=== PATIENT | female | born 1985 | race Caucasian/White ===

== ENCOUNTER → 2017-11-20 07:41 | Outpatient (CLI) | payer OTHER, SELFPAY | PROVIDERS: Family Provider Family Medicine; PCP Family Medicine; Visit Provider Obstetrics & Gynecology | DX: R76.0 Raised antibody titer (principal) | CPT/HCPCS: 36415 ==

== ENCOUNTER → 2017-12-22 08:23 | Outpatient (CLI) | payer OTHER, SELFPAY | PROVIDERS: Family Provider Family Medicine; PCP Family Medicine; Visit Provider Obstetrics & Gynecology | DX: R76.0 Raised antibody titer (principal) | CPT/HCPCS: 87070; 87077; 87106; 87205 ==

== ENCOUNTER → 2018-01-09 16:58 | Outpatient (CLI) | payer OTHER, SELFPAY ==
--- NOTE | 2018-01-09 17:03 | RAD_ITS ---
STUDY: X-RAY - RIGHT KNEE REASON FOR EXAM: Female, 32 years old. Pain TECHNIQUE: Three view(s) of the knee were obtained. COMPARISON: None. FINDINGS: The distal femur is unremarkable. The proximal tibia is unremarkable. Normal medial femorotibial compartment. Normal lateral femorotibial compartment. Normal patellofemoral articulation. There is minimal fullness above the patella. The soft tissue structures are unremarkable. RAD/Knee 3 Views IMPRESSION: There are no acute osseous abnormalities. There is a small joint effusion. Electronically Signed: Salina Sheth MD at 1:44 EDT Tel Direct: [phone], Service support ,
== END ==
PROVIDERS: Family Provider Family Medicine; PCP Family Medicine; Visit Provider Physician Assistant
DX: M25.561 Pain in right knee (principal)
CPT/HCPCS: 73562

== ENCOUNTER → 2018-01-17 22:14 | Outpatient (CLI) | payer OTHER, SELFPAY ==
[2018-01-18 00:23] LABS: Chlamydia Trachomatis by PCR Negative (Negative); Neisserai gonorrhoeae by PCR Negative (Negative); Probe Check PASS; Sample Adequacy Control PASS; Specimen Processing Control PASS
[2018-01-23 11:13] LABS: HPV APTIMA, High Risk Negative (Negative)
== END ==
PROVIDERS: Visit Provider Obstetrics & Gynecology
DX: Z34.90 Encounter for supervision of normal pregnancy, unspecified, unspecified trimester (principal); Z12.4 Encounter for screening for malignant neoplasm of cervix
CPT/HCPCS: 87086; 87491; 87591; 88175; G0145

== ENCOUNTER → 2018-02-04 08:53 | Outpatient (CLI) | payer OTHER, SELFPAY ==
[2018-02-04 10:05] LABS: Absolute Lymphocyte Count 1.54 X10^3/ul (0.83-4.51); Absolute Neutrophil Count 5.5 X10^3/uL (2.0-7.7); Basophil# 0.02 X10^3/uL; Basophil% 0.3 % (0-1); Eosinophil# 0.13 X10^3/uL; Eosinophils% 1.7 % (0-5); Hematocrit 43.5 % (37-47); Lymphocyte # 1.54 X10^3/ul (4.0); Lymphocyte % 20.1 % (19-41); Mean Corp Hgb Conc 34.5 g/gl (32-36); Mean Corpuscular Hgb 30.1 pg (27.0-32.0); Mean Corpuscular Volume 87.2 fL (81-99); Mean Platelet Vol. 10.3 fl (6.2-12.0); Monocyte% 6.5 % (0-10); Neutrophil # 5.45 X10^3/uL (2.7-7.7); Neutrophil % 71.3 % (47-70); Platelet Count 267 K/mm3 (150-450); RBC Distribution Width CV 12.7 % (11.6-14.6); RBC Distribution Width SD 40.7 fl (35.1-43.9); Red Blood Count 4.99 M/mm3 (4.2-5.4); White Blood Count 7.7 K/mm3 (4.4-11.0)
[2018-02-04 10:15] LABS: POSITIVE COUNT NO; POSITIVE DIFFERENTIAL NO; POSITIVE MORPHOLOGY NO
[2018-02-04 11:24] LABS: HIV - WCH Non-Reactive (Nonreactive); Rubella IgG 192.7 IU/mL
[2018-02-05 11:05] LABS: HEPATITIS B SURFACE AG Negative (Negative)
[2018-02-08 01:10] LABS: Rapid Plasmin Reagin (RPR) NONREACTIVE (NONREACTIVE)
== END ==
PROVIDERS: Family Provider Family Medicine; PCP Family Medicine; Visit Provider Obstetrics & Gynecology
DX: Z34.90 Encounter for supervision of normal pregnancy, unspecified, unspecified trimester (principal)
CPT/HCPCS: 36415; 85025; 86592; 86703; 86762; 86850; 86900; 87340

== ENCOUNTER → 2018-03-06 07:55 | Outpatient (CLI) | payer OTHER, SELFPAY ==
--- NOTE | 2018-03-06 07:55 | DT_ITS ---
This patient was seen during an EMR downtime March 04, 2018 - March 11, 2018. This patient may have a combination of paper and electronic documentation or all paper documentation. All documentation is viewable within the e-chart portion of [facility] for each patient visit.
[2018-03-09 13:38] LABS: Red Blood Cells-Urine 0 SEEN /hpf (0-5)
[2018-03-11 21:24] LABS: Color, Urine Yellow (Yellow); Glucose, Dipstick Normal (Normal); Ketone-Dipstick Negative (Negative); Urine Bilirubin Dipstick Negative (Negative); Urine Clarity Clear (Clear)
[2018-03-11 21:25] LABS: Bacteria RARE /hpf (None Seen); Leukocyte Esterase-Dipstick 25 /ul (Negative); Mucous, Urine RARE /hpf (<or=2+); Nitrite-Dipstick Negative (Negative); Occult Blood-Urine Negative /ul (Negative); Protein-Dipstick 15 mg/dl (Negative); Squamous Epithelial Cells - UA 0-5 SEEN /hpf (5-10); Urine Urobilinogen Normal (Normal); White Blood Cells 0-5 SEEN /hpf (0-5)
== END ==
PROVIDERS: Family Provider Family Medicine; PCP Family Medicine; Visit Provider Nurse Practitioner Women's Health
DX: Z34.90 Encounter for supervision of normal pregnancy, unspecified, unspecified trimester (principal); R30.0 Dysuria
CPT/HCPCS: 81001; 87086; 87088

== ENCOUNTER → 2018-03-20 08:39 | Outpatient (CLI) | payer OTHER, SELFPAY ==
[2018-03-22 13:25] LABS: Vitamin D 1,25-Dihydroxy 96.9 pg/mL (19.9-79.3)
== END ==
PROVIDERS: Family Provider Family Medicine; PCP Family Medicine; Visit Provider Obstetrics & Gynecology
DX: Z36.9 Encounter for antenatal screening, unspecified (principal); O99.119 Other diseases of the blood and blood-forming organs and certain disorders involving the immune mechanism complicating pregnancy, unspecified trimester; D68.61 Antiphospholipid syndrome; O09.91 Supervision of high risk pregnancy, unspecified, first trimester; Z3A.00 Weeks of gestation of pregnancy not specified
CPT/HCPCS: 36415; 82652

== ENCOUNTER → 2018-04-22 12:45 | Outpatient (CLI) | payer OTHER, SELFPAY ==
--- NOTE | 2018-04-22 12:46 | US_ITS ---
STUDY: SECOND AND THIRD TRIMESTER OBSTETRICAL ULTRASOUND REASON FOR EXAM: Female, 32 years old. anatomy LMP: TECHNIQUE: Transabdominal PRIOR ULTRASOUND: None. FINDINGS: There is a single intrauterine fetus. The fetus is in a variable presentation. There is demonstrated cardiac activity with a heart rate of 163 bpm. There is a normal amniotic fluid volume. The largest amniotic fluid pocket measures 5.7 x 12.3 cm.The placenta is anterior and fundal There are Grade 0 placental changes. The cervix measures 4.1 cm in length. The bilateral adnexal regions are normal. BIOMETRY: BPD: 5.4 cm: 22 weeks, 3 days HC: 18.8 cm: 21 weeks, 6 days AC: 15.8 cm: 21 weeks, 0 days FL: 3.4 cm: 20 weeks, 5 days CI: 0.84 FL/BPD: 0.63 FL/HC: 0.22 FL/AC: HC/AC: 1.19 age by current US: 21 weeks, 3 days. THANG by current US: August 30, 2018. Estimated weight: grams, +/- grams, %. age by prior US: weeks, days. THANG by prior US: . Age by LMP: 20 weeks, 6 days. THANG by LMP: September 03, 2018. ANATOMY: Cranium: Normal lateral ventricles. Normal choroid plexus. Normal cerebellum. Normal cisterna magna. Normal face, nose and lips. Chest: Normal 4-chamber heart. Abdomen/Pelvis: Normal diaphragm. Normal stomach. Normal abdominal wall. Normal cord insertion. Normal 3 vessel cord. Normal kidneys. Normal bladder. Spine: Normal cervical spine. Normal thoracic spine. Normal lumbar spine. Normal sacrum. Extremities: Normal bilateral upper extremities. Normal bilateral lower extremities. US/OB Anatomy Scan IMPRESSION: Viable intrauterine gestation approximately 21 weeks gestational age.. No anomalies noted at this time Electronically Signed: Rafi Ignacio MD at 22:22 EDT , Service support ,
== END ==
PROVIDERS: Family Provider Family Medicine; PCP Family Medicine; Visit Provider Obstetrics & Gynecology
DX: O09.90 Supervision of high risk pregnancy, unspecified, unspecified trimester (principal); Z3A.00 Weeks of gestation of pregnancy not specified
CPT/HCPCS: 76805

== ENCOUNTER → 2018-06-07 09:25 | Outpatient (CLI) | payer OTHER, SELFPAY ==
[2018-06-07 10:47] LABS: Absolute Lymphocyte Count 1.62 X10^3/ul (0.83-4.51); Absolute Neutrophil Count 7.4 X10^3/uL (2.0-7.7); Basophil# 0.03 X10^3/uL; Basophil% 0.3 % (0-1); Eosinophil# 0.17 X10^3/uL; Eosinophils% 1.7 % (0-5); Hemoglobin 12.7 g/dl (12.0-15.0); Lymphocyte # 1.62 X10^3/ul (4.0); Mean Corp Hgb Conc 34.3 g/gl (32-36); Mean Corpuscular Hgb 30.8 pg (27.0-32.0); Mean Corpuscular Volume 89.6 fL (81-99); Mean Platelet Vol. 10.7 fl (6.2-12.0); Monocyte# 0.75 X10^3/uL; Monocyte% 7.4 % (0-10); Neutrophil # 7.36 X10^3/uL (2.7-7.7); Neutrophil % 72.7 % (47-70); POSITIVE COUNT NO; POSITIVE DIFFERENTIAL NO; POSITIVE MORPHOLOGY NO; Platelet Count 202 K/mm3 (150-450); RBC Distribution Width CV 13.2 % (11.6-14.6); RBC Distribution Width SD 42.6 fl (35.1-43.9); Red Blood Count 4.13 M/mm3 (4.2-5.4); White Blood Count 10.1 K/mm3 (4.4-11.0)
[2018-06-07 11:05] LABS: Glucose Challenge Gest 1H 50g 148 mg/dL (70-140)
== END ==
PROVIDERS: Family Provider Family Medicine; PCP Family Medicine; Visit Provider Nurse Practitioner Women's Health
DX: O09.90 Supervision of high risk pregnancy, unspecified, unspecified trimester (principal); Z3A.00 Weeks of gestation of pregnancy not specified
CPT/HCPCS: 36415; 82950; 85025

== ENCOUNTER → 2018-06-21 06:54 | Outpatient (CLI) | payer OTHER, SELFPAY ==
[2018-06-21 07:52] LABS: Glucose GTT-Gestation. Fasting 80 mg/dL (<105)
[2018-06-21 08:32] LABS: Glucose GTT-Gestational 1 Hr 165 mg/dL (<190)
[2018-06-21 09:31] LABS: Glucose GTT-Gestational 2 Hr 155 mg/dL (<165)
[2018-06-21 11:03] LABS: Glucose GTT-Gestational 3 Hr 113 L (<145)
== END ==
PROVIDERS: Family Provider Family Medicine; PCP Family Medicine; Visit Provider Obstetrics & Gynecology
DX: O99.810 Abnormal glucose complicating pregnancy (principal); Z3A.00 Weeks of gestation of pregnancy not specified
CPT/HCPCS: 36415; 82951; 82952

== ENCOUNTER 2018-07-11 08:00 | Outpatient (CLI) | payer OTHER, SELFPAY ==
[2018-07-11 08:17] VITALS: BMI 24.2
--- NOTE | 2018-07-15 21:29 | OB.TRI.NOTE ---
- Problem List (1) Supervision of high-risk Status: Acute Qualifiers: Comment: PRR THANG 09/03/18 PC Galdinoden Kevin (2) Antiphospholipid antibody syndrome complicating Status: Acute Comment: 40 mg lovenox and 81mg aspirin in and 6 weeks , growth us q 4 weeks after 32 and weekly nsts from 32 on History of Present Illness Date of Service: 07/11/18 Was patient seen by the physician?: Yes Reason For Visit: NST Date of Service: 07/11/18 History of Present Illness: nst Allergies atropine sulfate [From ] Allergy (Verified 07/15/18 07:55) Unknown hyoscyamine sulfate [From ] Allergy (Verified 07/15/18 07:55) Unknown phenobarbital [From ] Allergy (Verified 07/15/18 07:55) Unknown scopolamine hydrobromide [From ] Allergy (Verified 07/15/18 07:55) Unknown - Pertinent Past Medical History Medical History: Past Medical History (Last Reviewed 07/15/18 @ 07:55 by Xiomara De Dios) History of blood clotting disorder Severe headache hx of knee pain Antiphospholipid antibody positive (Resolved) 09/04/17- positive antibodies, repeat in 3 months Surgical History: Past Surgical History (Last Reviewed 07/03/18 @ 08:09 by Deya Ceballos) H/O dilation and curettage H/O hernia repair S/P appendectomy NST - FHR Rate Baby A Baseline: 150 Variability:: Moderate Accelerations:: 15 x 15 Decelerations:: None NST Reactive:: Yes FHR Category:: Category I Impression/Plan Antiphospholipid antibody syndrome recommend weekly NSTs until delivery. Reactive NST category 1 tracing DC home
== END 2018-07-11 09:00 | disposition home or self-care (01) ==
LOC: WPOUT 08:06 → WP 08:22
PROVIDERS: Family Provider Family Medicine; PCP Family Medicine; Referring Provider Obstetrics & Gynecology; Visit Provider Obstetrics & Gynecology
DX: O09.90 Supervision of high risk pregnancy, unspecified, unspecified trimester (principal); O99.119 Other diseases of the blood and blood-forming organs and certain disorders involving the immune mechanism complicating pregnancy, unspecified trimester; D68.61 Antiphospholipid syndrome; Z3A.00 Weeks of gestation of pregnancy not specified
CPT/HCPCS: 59025; 59050; 99218; G0378

== ENCOUNTER → 2018-07-12 14:02 | Outpatient (CLI) | payer OTHER, SELFPAY ==
--- NOTE | 2018-07-12 14:03 | US_ITS ---
STUDY: SECOND AND THIRD TRIMESTER OBSTETRICAL ULTRASOUND - LIMITED REASON FOR EXAM: Female, 32 years old. Evaluate growth. LMP: 11/27/2017. PRIOR ULTRASOUND: 04/22/2018. TECHNIQUE: Transabdominal TECHNICAL QUALITY: Adequate. FINDINGS: There is a single intrauterine fetus. The fetus is in a cephalic presentation. There is demonstrated cardiac activity with a heart rate of 130 bpm. There is a normal amniotic fluid volume. The largest amniotic fluid pocket measures 5.8 cm. The amniotic fluid index (PING) is 19 cm. The placenta is anterior in location and is not low lying. There are Grade 0 placental changes. The cervix measures 2.9 cm in length. BIOMETRY: BPD: 85 mm: 34 weeks, 3 days HC: 307 mm: 34 weeks, 2 days AC: 288 mm: 33 weeks, 0 days FL: 64 mm: 33 weeks, 0 days Age by LMP: 32 weeks, 3 days. THANG by LMP: 09/03/2018. age by prior US: 21 weeks, 3 days. THANG by prior US: 08/30/2018. age by current US: 33 weeks, 5 days. THANG by current US: 08/25/2018. Estimated weight: 2128 grams, +/- 311 grams, 63 percentile. anatomy is not evaluated at this time. US/OB Limited With Biometrics IMPRESSION: Single live intrauterine fetus in cephalic presentation with an estimated gestational age of 33 weeks and 5 days. The THANG is 08/25/2018. The growth is within normal limits when compared to the previous examination. Electronically Signed: Elton Day MD at 11:48 EDT Tel , Service support ,
== END ==
PROVIDERS: Family Provider Family Medicine; PCP Family Medicine; Referring Provider Obstetrics & Gynecology; Visit Provider Obstetrics & Gynecology
DX: Z34.90 Encounter for supervision of normal pregnancy, unspecified, unspecified trimester (principal)
CPT/HCPCS: 76816

== ENCOUNTER 2018-07-18 18:45 | Outpatient (CLI) | payer OTHER, SELFPAY ==
[2018-07-18 19:15] VITALS: BMI 24.7
[2018-07-18 19:53] VITALS: RESP 18
--- NOTE | 2018-07-22 02:33 | OB.TRI.NOTE ---
- Problem List (1) Vaginal bleeding during Status: Acute History of Present Illness Date of Service: 07/18/18 Was patient seen by the physician?: Yes Reason For Visit: SPOTTING History of Present Illness: co spotting, no intercourse and denies any abdominal pain, feeling movememnt. no lof no regular ctx Allergies atropine sulfate [From ] Allergy (Verified 07/15/18 07:55) Unknown hyoscyamine sulfate [From ] Allergy (Verified 07/15/18 07:55) Unknown phenobarbital [From ] Allergy (Verified 07/15/18 07:55) Unknown scopolamine hydrobromide [From ] Allergy (Verified 07/15/18 07:55) Unknown - Pertinent Past Medical History Medical History: Past Medical History (Last Reviewed 07/15/18 @ 07:55 by Xiomara De Dios) History of blood clotting disorder Severe headache hx of knee pain Antiphospholipid antibody positive (Resolved) 09/04/17- positive antibodies, repeat in 3 months Surgical History: Past Surgical History (Last Reviewed 07/03/18 @ 08:09 by Deya Ceballos) H/O dilation and curettage H/O hernia repair S/P appendectomy Physical Exam Vitals: Vital Signs Resp 18 07/18/18 19:53 NST - FHR Rate Baby A Baseline: 140-150 Variability:: Moderate Accelerations:: 15 x 15 Decelerations:: None NST Reactive:: Yes FHR Category:: Category I Uterine Activity:: no regular
== END 2018-07-18 19:53 | disposition home or self-care (01) ==
LOC: WPOUT 18:49 → WP 18:50
PROVIDERS: Family Provider Family Medicine; PCP Family Medicine; Referring Provider Obstetrics & Gynecology; Visit Provider Obstetrics & Gynecology
DX: O46.90 Antepartum hemorrhage, unspecified, unspecified trimester (principal); Z3A.00 Weeks of gestation of pregnancy not specified
CPT/HCPCS: 59025; 59050; 99218; G0378

== ENCOUNTER 2018-07-27 07:35 | Outpatient (CLI) | payer OTHER, SELFPAY ==
[2018-07-27 07:50] VITALS: BMI 24.5
--- NOTE | 2018-07-28 02:52 | OB.TRI.NOTE ---
- Problem List (1) Supervision of high-risk Status: Acute Qualifiers: Comment: PRR THANG 09/03/18 PC Galdinoden Kevin (2) Antiphospholipid antibody syndrome complicating Status: Acute Comment: 40 mg lovenox and 81mg aspirin in and 6 weeks , growth us q 4 weeks after 32 and weekly nsts from 32 on History of Present Illness Date of Service: 07/27/18 Was patient seen by the physician?: No Reason For Visit: NST Date of Service: 07/27/18 History of Present Illness: nst for apl syndrome Allergies atropine sulfate [From ] Allergy (Verified 07/27/18 07:54) Hives hyoscyamine sulfate [From ] Allergy (Verified 07/27/18 07:54) Hives phenobarbital [From ] Allergy (Verified 07/27/18 07:54) Hives scopolamine hydrobromide [From ] Allergy (Verified 07/27/18 07:54) Hives - Pertinent Past Medical History Medical History: Past Medical History (Last Reviewed 07/15/18 @ 07:55 by Xiomara De Dios) History of blood clotting disorder Severe headache hx of knee pain Antiphospholipid antibody positive (Resolved) 09/04/17- positive antibodies, repeat in 3 months Surgical History: Past Surgical History (Last Reviewed 07/03/18 @ 08:09 by Deya Ceballos) H/O dilation and curettage H/O hernia repair S/P appendectomy NST - FHR Rate Baby A Baseline: 130 Variability:: Moderate Accelerations:: 15 x 15 Decelerations:: None NST Reactive:: Yes FHR Category:: Category I Uterine Activity:: no regular Impression/Plan apl syndrome nst reactive fu as scheduled
== END 2018-07-27 08:20 | disposition home or self-care (01) ==
LOC: WPOUT 07:42 → WP 07:42
PROVIDERS: Family Provider Family Medicine; PCP Family Medicine; Referring Provider Obstetrics & Gynecology; Visit Provider Obstetrics & Gynecology
DX: O99.119 Other diseases of the blood and blood-forming organs and certain disorders involving the immune mechanism complicating pregnancy, unspecified trimester (principal); D68.61 Antiphospholipid syndrome; O09.90 Supervision of high risk pregnancy, unspecified, unspecified trimester; Z3A.00 Weeks of gestation of pregnancy not specified
CPT/HCPCS: 59025; 59050; 99218; G0378

== ENCOUNTER 2018-07-31 07:39 | Outpatient (CLI) | payer OTHER, SELFPAY ==
[2018-07-31 08:14] VITALS: BMI 24.5
--- NOTE | 2018-08-12 21:08 | OB.TRI.NOTE ---
- Problem List (1) Supervision of high-risk Status: Acute Qualifiers: Comment: PRR THANG 09/03/18 PC Galdinoden Kevin (2) Antiphospholipid antibody syndrome complicating Status: Acute Comment: 40 mg lovenox and 81mg aspirin in and 6 weeks , growth us q 4 weeks after 32 and weekly nsts from 32 on History of Present Illness Date of Service: 07/31/18 Was patient seen by the physician?: No Reason For Visit: NST History of Present Illness: APL syndrome scheduled nst Allergies atropine sulfate [From ] Allergy (Verified 08/09/18 08:32) Hives hyoscyamine sulfate [From ] Allergy (Verified 08/09/18 08:32) Hives phenobarbital [From ] Allergy (Verified 08/09/18 08:32) Hives scopolamine hydrobromide [From ] Allergy (Verified 08/09/18 08:32) Hives - Pertinent Past Medical History Medical History: Past Medical History (Last Reviewed 08/05/18 @ 08:33 by Xiomara De Dios) History of blood clotting disorder Severe headache hx of knee pain Antiphospholipid antibody positive (Resolved) 09/04/17- positive antibodies, repeat in 3 months Surgical History: Past Surgical History (Last Reviewed 08/05/18 @ 08:33 by Xiomara De Dios) H/O dilation and curettage H/O hernia repair S/P appendectomy NST - FHR Rate Baby A Baseline: 135 Variability:: Moderate Accelerations:: 15 x 15 Decelerations:: None NST Reactive:: Yes FHR Category:: Category I Uterine Activity:: irregular Impression/Plan reactive nst dc home continue weekly nsts
== END 2018-07-31 11:00 | disposition home or self-care (01) ==
LOC: WPOUT 07:40 → WP 07:41
PROVIDERS: Family Provider Family Medicine; PCP Family Medicine; Referring Provider Obstetrics & Gynecology; Visit Provider Obstetrics & Gynecology
DX: O99.119 Other diseases of the blood and blood-forming organs and certain disorders involving the immune mechanism complicating pregnancy, unspecified trimester (principal); D68.61 Antiphospholipid syndrome; Z3A.00 Weeks of gestation of pregnancy not specified
CPT/HCPCS: 59025

== ENCOUNTER → 2018-08-05 17:04 | Outpatient (CLI) | payer OTHER, SELFPAY ==
[2018-08-05 19:56] LABS: Group B Strep DNA By PCR Negative (Negative); Internal Control PASS; Probe Check PASS; Specimen Processing Control PASS
== END ==
PROVIDERS: Family Provider Family Medicine; PCP Family Medicine; Referring Provider Obstetrics & Gynecology; Visit Provider Obstetrics & Gynecology
DX: O09.90 Supervision of high risk pregnancy, unspecified, unspecified trimester (principal); Z3A.00 Weeks of gestation of pregnancy not specified
CPT/HCPCS: 87081; 87653

== ENCOUNTER → 2018-08-06 09:00 | Outpatient (CLI) | payer OTHER, SELFPAY ==
--- NOTE | 2018-08-06 09:01 | US_ITS ---
STUDY: SECOND AND THIRD TRIMESTER OBSTETRICAL ULTRASOUND - LIMITED REASON FOR EXAM: Female, 32 years old. Routine survey. LMP: November 27, 2017. PRIOR ULTRASOUND: Comparison is made with prior study dated July 12, 2019. TECHNIQUE: Transabdominal TECHNICAL QUALITY: Adequate. FINDINGS: There is a single intrauterine fetus. The fetus is in a cephalic presentation. There is demonstrated cardiac activity with a heart rate of 146 bpm. There is a normal amniotic fluid volume. The largest amniotic fluid pocket measures 4.5 cm x 4.3 cm. The amniotic fluid index (PING) is 14.94 cm. The placenta is anterior in location and is not low lying. There are Grade 1 placental changes. The cervix was not visualized due to the head position. BIOMETRY: BPD: 9.2 cm: 37 weeks, 3 days HC: 32.91 cm: 37 weeks, 3 days AC: 32.17 cm: 36 weeks, 1 days FL: 6.75 cm: 34 weeks, 5 days Age by LMP: 36 weeks, 0 days. THANG by LMP: September 03, 2018. age by prior US: 37 weeks, 2 days. THANG by prior US: August 25, 2018. age by current US: 37 weeks, 3 days. THANG by current US: August 31, 2018. Estimated weight: 2825 grams, +/- 413 grams, 51 percentile. Gender: Indeterminant US/OB Limited With Biometrics IMPRESSION: Single live intrauterine gestation with a mean gestational age of 37 weeks and 2 days. The measurements obtained today fall within the normal expected range. Electronically Signed: Gerson Cano MD at 8:34 EST Tel [phone], Service support ,
== END ==
PROVIDERS: Family Provider Family Medicine; PCP Family Medicine; Referring Provider Obstetrics & Gynecology; Visit Provider Obstetrics & Gynecology
DX: O09.90 Supervision of high risk pregnancy, unspecified, unspecified trimester (principal); O99.119 Other diseases of the blood and blood-forming organs and certain disorders involving the immune mechanism complicating pregnancy, unspecified trimester; D68.61 Antiphospholipid syndrome; Z3A.00 Weeks of gestation of pregnancy not specified
CPT/HCPCS: 76816

== ENCOUNTER 2018-08-09 07:30 | Outpatient (CLI) | payer OTHER, SELFPAY ==
[2018-08-09 07:45] VITALS: BMI 24.4
[2018-08-09 08:15] VITALS: BP 115/76; PULSE 98; RESP 18; TEMP 35.9; O2SAT 99
--- NOTE | 2018-08-12 21:31 | OB.TRI.NOTE ---
- Problem List (1) Supervision of high-risk Status: Acute Qualifiers: Comment: PRR THANG 09/03/18 PC Galdinoden Kevin (2) Antiphospholipid antibody syndrome complicating Status: Acute Comment: 40 mg lovenox and 81mg aspirin in and 6 weeks , growth us q 4 weeks after 32 and weekly nsts from 32 on History of Present Illness Date of Service: 08/09/18 Was patient seen by the physician?: No Reason For Visit: NST Date of Service: 08/09/18 History of Present Illness: APL syndrome wekely nst Allergies atropine sulfate [From ] Allergy (Verified 08/09/18 08:32) Hives hyoscyamine sulfate [From ] Allergy (Verified 08/09/18 08:32) Hives phenobarbital [From ] Allergy (Verified 08/09/18 08:32) Hives scopolamine hydrobromide [From ] Allergy (Verified 08/09/18 08:32) Hives - Pertinent Past Medical History Medical History: Past Medical History (Last Reviewed 08/05/18 @ 08:33 by Xiomara De Dios) History of blood clotting disorder Severe headache hx of knee pain Antiphospholipid antibody positive (Resolved) 09/04/17- positive antibodies, repeat in 3 months Surgical History: Past Surgical History (Last Reviewed 08/05/18 @ 08:33 by Xiomara De Dios) H/O dilation and curettage H/O hernia repair S/P appendectomy Physical Exam Vitals: Vital Signs Temp Pulse Resp BP Pulse Ox 96.6 F L 98 18 115/76 99 08/09/18 08:15 08/09/18 08:15 08/09/18 08:15 08/09/18 08:15 08/09/18 08:15 NST - FHR Rate Baby A Baseline: 135 Variability:: Moderate Accelerations:: 15 x 15 Decelerations:: None NST Reactive:: Yes FHR Category:: Category I Uterine Activity:: no regular Impression/Plan APL syndrome high risk gets weekly nsts until delivery
== END 2018-08-09 08:14 | disposition home or self-care (01) ==
LOC: WPOUT 07:44 → WP 07:45
PROVIDERS: Family Provider Family Medicine; PCP Family Medicine; Referring Provider Obstetrics & Gynecology; Visit Provider Obstetrics & Gynecology
DX: O99.119 Other diseases of the blood and blood-forming organs and certain disorders involving the immune mechanism complicating pregnancy, unspecified trimester (principal); D68.61 Antiphospholipid syndrome; O09.90 Supervision of high risk pregnancy, unspecified, unspecified trimester; Z3A.00 Weeks of gestation of pregnancy not specified
CPT/HCPCS: 59025

== ENCOUNTER 2018-08-14 07:44 | Outpatient (CLI) | payer OTHER, SELFPAY ==
[2018-08-14 07:54] VITALS: BMI 23.8
[2018-08-14 08:48] VITALS: RESP 18
--- NOTE | 2018-08-14 18:50 | OB.TRI.NOTE ---
- Problem List (1) Abnormal glucose affecting Status: Acute Comment: negative 3 hour gtt (2) Supervision of high-risk Status: Acute Qualifiers: Comment: PRR THANG 09/03/18 PC Fran Kevin (3) Antiphospholipid antibody syndrome complicating Status: Acute Comment: 40 mg lovenox and 81mg aspirin in and 6 weeks , growth us q 4 weeks after 32 and weekly nsts from 32 on History of Present Illness Date of Service: 08/14/18 Reason For Visit: NST History of Present Illness: nst for apl syndrome Allergies atropine sulfate [From ] Allergy (Verified 08/09/18 08:32) Hives hyoscyamine sulfate [From ] Allergy (Verified 08/09/18 08:32) Hives phenobarbital [From ] Allergy (Verified 08/09/18 08:32) Hives scopolamine hydrobromide [From ] Allergy (Verified 08/09/18 08:32) Hives - Pertinent Past Medical History Medical History: Past Medical History (Last Reviewed 08/05/18 @ 08:33 by Xiomara De Dios) History of blood clotting disorder Severe headache hx of knee pain Antiphospholipid antibody positive (Resolved) 09/04/17- positive antibodies, repeat in 3 months Surgical History: Past Surgical History (Last Reviewed 08/05/18 @ 08:33 by Xiomara De Dios) H/O dilation and curettage H/O hernia repair S/P appendectomy Physical Exam Vitals: Vital Signs Resp 18 08/14/18 08:48 NST - FHR Rate Baby A Baseline: 130 Variability:: Moderate Accelerations:: 15 x 15 Decelerations:: None NST Reactive:: Yes FHR Category:: Category I Uterine Activity:: irregular Impression/Plan nst reactive for high risk APL syndrome
== END 2018-08-14 08:48 | disposition home or self-care (01) ==
LOC: WPOUT 07:46 → WP 07:48
PROVIDERS: Family Provider Family Medicine; PCP Family Medicine; Referring Provider Obstetrics & Gynecology; Visit Provider Obstetrics & Gynecology
DX: O09.90 Supervision of high risk pregnancy, unspecified, unspecified trimester (principal); O99.119 Other diseases of the blood and blood-forming organs and certain disorders involving the immune mechanism complicating pregnancy, unspecified trimester; D68.61 Antiphospholipid syndrome; Z3A.00 Weeks of gestation of pregnancy not specified
CPT/HCPCS: 59025

== ENCOUNTER 2018-08-23 15:00 | Outpatient (CLI) | payer OTHER, SELFPAY ==
[2018-08-21 09:03] VITALS: BMI 24.0
[2018-08-23 15:39] VITALS: BMI 23.0
[2018-08-23 15:41] VITALS: BP 114/72; PULSE 95; RESP 18; TEMP 36.8; O2SAT 99
--- NOTE | 2018-08-24 09:19 | OB.TRI.NOTE ---
History of Present Illness Date of Service: 08/23/18 Was patient seen by the physician?: No Reason For Visit: NST Date of Service: 08/23/18 Final THANG: 09/03/18 Final THANG Source: US <20 weeks Gestational age: 38 Weeks and 4 Days History of Present Illness: Scheduled NST Allergies atropine sulfate [From ] Allergy (Verified 08/21/18 09:01) Hives hyoscyamine sulfate [From ] Allergy (Verified 08/21/18 09:01) Hives phenobarbital [From ] Allergy (Verified 08/21/18 09:01) Hives scopolamine hydrobromide [From ] Allergy (Verified 08/21/18 09:01) Hives - Pertinent Past Medical History Medical History: Past Medical History (Last Reviewed 08/21/18 @ 09:02 by Deya Ceballos) History of blood clotting disorder Severe headache hx of knee pain Antiphospholipid antibody positive (Resolved) 09/04/17- positive antibodies, repeat in 3 months Surgical History: Past Surgical History (Last Reviewed 08/21/18 @ 09:02 by Deya Ceballos) H/O dilation and curettage H/O hernia repair S/P appendectomy Physical Exam Vitals: Vital Signs Temp Pulse Resp BP Pulse Ox 98.2 F 95 18 114/72 99 08/23/18 15:41 08/23/18 15:41 08/23/18 15:41 08/23/18 15:41 08/23/18 15:41 General: Alert, Oriented x3, Cooperative, No apparent distress Cardiovascular: Regular rate, Regular Rhythm Lungs: Clear to auscultation, Normal air movement Abdomen: Soft, Non Tender, Non-Distended, Gravid, Appropriate for Gestational Age Extremities:: No edema [employer]: Normal external genitalia Estimated gestational size: Appropriate for gestational size Presentation: Cephalic NST - FHR Rate Baby A Baseline: 150s Variability:: Moderate Accelerations:: 15 x 15 Decelerations:: None NST Reactive:: Yes, Appropriate for gestational age FHR Category:: Category I Uterine Activity:: None Impression/Plan Reassuring NST.
== END 2018-08-23 15:30 | disposition home health service (06) ==
LOC: WPOUT 15:07 → WP 15:07
PROVIDERS: Family Provider Family Medicine; PCP Family Medicine; Referring Provider Obstetrics & Gynecology; Visit Provider Obstetrics & Gynecology
DX: Z34.93 Encounter for supervision of normal pregnancy, unspecified, third trimester (principal); Z3A.38 38 weeks gestation of pregnancy
CPT/HCPCS: 59025; 59050; 99218; G0378

== ENCOUNTER 2018-08-26 07:40 | Inpatient (IN) | payer OTHER, SELFPAY ==
--- NOTE | 2018-08-26 08:00 | PCM.HP.OB ---
History Date of Admission: 08/16/17 Final THANG: 09/03/18 Final THANG Source: US <20 weeks Gestational age: 38 Weeks and 6 Days History of this : This is a 32 year-old, G [], P [], at weeks gestational age. Medical History: Medical History (Last Reviewed 08/21/18 @ 09:02 by Deya Ceballos) History of blood clotting disorder Z86.2 Severe headache R51 hx of knee pain Antiphospholipid antibody positive (Resolved) R76.0 09/04/17- positive antibodies, repeat in 3 months Surgical History: Surgical History (Last Reviewed 08/21/18 @ 09:02 by Deya Ceballos) H/O dilation and curettage Z98.890 H/O hernia repair Z98.890, Z87.19 S/P appendectomy Z90.49 Allergies atropine sulfate [From ] Allergy (Verified 08/21/18 09:01) Hives hyoscyamine sulfate [From ] Allergy (Verified 08/21/18 09:01) Hives phenobarbital [From ] Allergy (Verified 08/21/18 09:01) Hives scopolamine hydrobromide [From ] Allergy (Verified 08/21/18 09:01) Hives Home Medications: Home Medications acetaminophen 325 mg capsule 500 mg PO Q6H PRN 01/17/18 levocetirizine 5 mg tablet 5 mg PO QHS PRN #30 tab 02/19/18 Citalopram Hydrobromide [Citalopram HBr] 40 mg PO DAILY 07/11/18 Pantoprazole Sodium [Protonix] 20 mg PO DAILY 07/11/18 Vits [Prenatabs FA] 1 tab PO DAILY 07/11/18 heparin (porcine) 5,000 unit/mL injection syringe 5,000 unit SUBCUT Q12H 21 Days #42 ml 07/31/18 Smoking Status: Never smoker History Past Pregnancies: Past Pregnancies Delivery Date Name GA/Weeks Outcome Route Weight Infant Gender Labor Length Anesthesia Delivery Location Provider FOB Physical Exam General: Alert, Oriented x3, Cooperative, No apparent distress HEENT: Atraumatic Abdomen: Soft, Gravid Estimated gestational size: Appropriate for gestational size Presentation: Cephalic Cervix Dilation (cm): 4.5 - Pepper Sejal check Assessment/Plan All Active Problems (Last Reviewed 08/21/18 @ 09:02 by Deya Ceballos) Vaginal bleeding during (Acute) (Acute) Segmental and somatic dysfunction of pelvic region (Acute) Segmental and somatic dysfunction of sacral region (Acute) Segmental and somatic dysfunction of lumbar region (Acute) Abnormal glucose affecting (Acute) Supervision of high-risk (Acute) Antiphospholipid antibody syndrome complicating (Acute) screening encounter (Resolved) Antiphospholipid antibody positive (Resolved) Appendicitis (Resolved) Right knee sprain (Resolved) This is a 32 year-old, G 2, P 1, at weeks 38 6/7 wk scheduled for induction at 39 wks. w/ UCs all night at work. Admit with cervical change. Plans natural, no epidural
[2018-08-26] MEDS: Lactated Ringers 1,000 ML 50 ML IV (08:25)
[2018-08-26 08:44] VITALS: BMI 24.9
--- NOTE | 2018-08-26 08:44 | PCM.PN.BLA ---
Progress Note LABOR PROGRESS NOTE No complaints. Denies leaking of fluid or vaginal bleeding. Desires nitrous oxide in labor, no epidural planned. Last Heparin use 2 days ago. Patient anticipated continue Lovenox for VTE prevention for h/o APLS with 2 SABs. h/o 2 D&C and 1 appendectomy for non-ruptured appendix. AVSS, BP 114/72, 133/93 GEN - NAD, AAO x 3 FHR 120, moderate variability, + accelerations, no decelerations, some loss of contact TOCO 4/10 min SVE deferred, recently 4-5cm per HEALTHCARE ADMINISTRATIVE ASSISTANT Pepper Post A/P: 32yo @ 38 6/7wga with h/o APLS in labor, Cat I FHR -Delivery risks including but not limited to bleeding, infection, need for internal monitoring or vacuum assistance, injury to surrounding organs, need for further surgery possibly including section, dilation and curettage, hysterectomy discussed. -Blood transfusion acceptable -LARC declined -Expectant management at this time
[2018-08-26 08:45] LABS: Hematocrit 40.2 % (37-47); Hemoglobin 14.2 g/dl (12.0-15.0); Mean Corp Hgb Conc 35.3 g/gl (32-36); Mean Corpuscular Hgb 30.4 pg (27.0-32.0); Mean Corpuscular Volume 86.1 fL (81-99); Mean Platelet Vol. 11.1 fl (6.2-12.0); Platelet Count 240 K/mm3 (150-450); RBC Distribution Width CV 13.4 % (11.6-14.6); RBC Distribution Width SD 40.9 fl (35.1-43.9); Red Blood Count 4.67 M/mm3 (4.2-5.4); White Blood Count 11.5 K/mm3 (4.4-11.0)
[2018-08-26 08:54] LABS: Scan Indicated on CBC? Y/N NO
--- NOTE | 2018-08-26 08:55 | PN_ITS ---
Progress Note LABOR PROGRESS NOTE No complaints. Denies leaking of fluid or vaginal bleeding. Desires nitrous oxide in labor, no epidural planned. Last Heparin use 2 days ago. Patient anticipated continue Lovenox for VTE prevention for h/o APLS with 2 SABs. h/o 2 D&C and 1 appendectomy for non-ruptured appendix. AVSS, BP 114/72, 133/93 GEN - NAD, AAO x 3 FHR 120, moderate variability, + accelerations, no decelerations, some loss of contact TOCO 4/10 min SVE deferred, recently 4-5cm per [employer] Pepper Post A/P: 32yo @ 38 6/7wga with h/o APLS in labor, Cat I FHR -Delivery risks including but not limited to bleeding, infection, need for internal monitoring or vacuum assistance, injury to surrounding organs, need for further surgery possibly including section, dilation and curettage, hysterectomy discussed. -Blood transfusion acceptable -LARC declined -Expectant management at this time
[2018-08-26] MEDS: Ondansetron 4 MG/2 ML Vial IV (11:13)
[2018-08-26] MEDS: 0.9% Saline Lock 10 ML Syringe IV (11:15)
[2018-08-26] MEDS: Oxytocin 30 units/NS 500 ml 30 UNITS/500 ML IV.SOLN 334 UNITS IV (12:17)
[2018-08-26] MEDS: Oxytocin 30 units/NS 500 ml 30 UNITS/500 ML IV.SOLN 167 UNITS IV (12:47)
--- NOTE | 2018-08-26 13:09 | PCM.OB.VAG ---
Vaginal Delivery Maternal Presentation: Active Labor Amniotic Membrane Rupture Type: Spontaneous Final THANG: 09/03/18 Gestational age: 38 Weeks and 6 Days Date of Procedure: 08/26/18 Pre-Operative Diagnosis: 38 6/7 wk labor Post-Operative Diagnosis: 38 6/7 wk labor Surgery/ Procedure Performed: Spontaneous Vaginal Delivery Type of Anesthesia: None Description of Procedure: Arrived to room with head delivered, at perineum Nuchal cord x one reduced by nurse. Shoulders then delivered easily with lateral traction, maternal expulsive effort and slight rotation of anterior shoulder. Infant delivered to maternal abdomen. delayed cord clamping employed but the cord clamped x two and cut. initially needed additional stimulation. Ap 7/8 male PP exam Drape placed under patient then to keep bed more clean and dry. EXAM: 1st deg vaginal laceration noted. Hemostatic after pressure held. no repair. No anethesia for labor or delivery. Placenta delivered by spont expulsion. Normal appearing, intact. 3V cord. trailing membranes. EBL 350 cc Pt and infant tolerated delivery well. To recovery, stable condition Ray Chinyere counts correct x two. Presentation: Vertex, MOHIT Placental Delivery Description: Spontaneous Placenta Disposition: [facility] Nuchal Cord Compression: Without compression Cord Entanglement: Around neck x 1, loose Estimated Blood Loss: 350 A gender: Male (1 minute): 7 (5 minute): 8 Episiotomy Description: None Laceration: Vaginal Extension/lac, 1st degree - no repair required. Hemostatic after pressure applied Medications given after delivery: IV Pitocin Complications: None
--- NOTE | 2018-08-26 13:37 | PCM.DCVAG ---
Discharge Diet: No Restrictions Discharge Activity: May Shower, May Take a Tub Bath May resume sexual activity in: 4-6 weeks Additional Activity Instructions:: Nothing in the vagina for 4-6 weeks. You may return to work/school in 6 weeks. Additional Instructions: If you experience any of the following, contact your healthcare provider. Bleeding that soaks a pad every hour for 2 hours Fever 100.4 or higher Unrelieved abdominal pain Problems urinating (including inability to urinate or burning while urinating). Visual changes Severe headache Flu-like symptoms Pain or redness in one of both of your breasts Pain, warmth, tenderness or swelling in your legs, especially the calf area Frequent nausea and vomiting Symptoms of depression or anxiety If you experience any of the following, call 911 or go to the nearest Emergency Room. Chest pain Problems breathing Seizure activity Partial or complete paralysis of a body part, slurred speech, weakness or drooping of the face, or a sudden inability to walk or hold your balance Allergies/Adverse Reactions: Allergies atropine sulfate [From ] Allergy (Verified 08/26/18 08:44) Hives hyoscyamine sulfate [From ] Allergy (Verified 08/26/18 08:44) Hives phenobarbital [From ] Allergy (Verified 08/26/18 08:44) Hives scopolamine hydrobromide [From ] Allergy (Verified 08/26/18 08:44) Hives Medications to take at Discharge acetaminophen 325 mg capsule 500 mg PO Q6H PRN 01/17/18 levocetirizine 5 mg tablet 5 mg PO QHS PRN #30 tab 02/19/18 Citalopram Hydrobromide [Citalopram HBr] 40 mg PO DAILY 07/11/18 Vits [Prenatabs FA ] 1 tab PO DAILY 07/11/18 Acetaminophen [Tylenol] 1,000 mg PO Q8H PRN PRN tablet 08/26/18 Enoxaparin [Lovenox] 40 mg SC DAILY 45 Days #45 syringe 08/26/18 The following prescriptions were given: Enoxaparin [Lovenox] 40 mg SC DAILY 45 Days #45 syringe Please Follow Up With: Leonila Dave MD When: 6 wk for check up Primary Care Physician: Stephen Blackman III, MD [Primary Care Provider] - Test Results: Test results from this visit will be discussed in further detail at your follow-up appointment, if applicable. Proposed Discharge Date: 08/28/18
--- NOTE | 2018-08-26 13:42 | DCINST_ITS ---
Discharge Diet: No Restrictions Discharge Activity: May Shower, May Take a Tub Bath May resume sexual activity in: 4-6 weeks Additional Activity Instructions:: Nothing in the vagina for 4-6 weeks. You may return to work/school in 6 weeks. Additional Instructions: If you experience any of the following, contact your healthcare provider. * Bleeding that soaks a pad every hour for 2 hours * Fever 100.4 or higher * Unrelieved abdominal pain * Problems urinating (including inability to urinate or burning while urinating). * Visual changes * Severe headache * Flu-like symptoms * Pain or redness in one of both of your breasts * Pain, warmth, tenderness or swelling in your legs, especially the calf area * Frequent nausea and vomiting * Symptoms of depression or anxiety If you experience any of the following, call 911 or go to the nearest Emergency Room. * Chest pain * Problems breathing * Seizure activity * Partial or complete paralysis of a body part, slurred speech, weakness or drooping of the face, or a sudden inability to walk or hold your balance Allergies/Adverse Reactions: Allergies atropine sulfate [From ] Allergy (Verified 08/26/18 08:44) Hives hyoscyamine sulfate [From ] Allergy (Verified 08/26/18 08:44) Hives phenobarbital [From ] Allergy (Verified 08/26/18 08:44) Hives scopolamine hydrobromide [From ] Allergy (Verified 08/26/18 08:44) Hives Medications to take at Discharge acetaminophen 325 mg capsule 500 mg PO Q6H PRN 01/17/18 levocetirizine 5 mg tablet 5 mg PO QHS PRN #30 tab 02/19/18 Citalopram Hydrobromide [Citalopram HBr] 40 mg PO DAILY 07/11/18 Vits [Prenatabs FA ] 1 tab PO DAILY 07/11/18 Acetaminophen [Tylenol] 1,000 mg PO Q8H PRN PRN tablet 08/26/18 Enoxaparin [Lovenox] 40 mg SC DAILY 45 Days #45 syringe 08/26/18 The following prescriptions were given: Enoxaparin [Lovenox] 40 mg SC DAILY 45 Days #45 syringe Please Follow Up With: Leonila Dave MD When: 6 wk for check up Primary Care Physician: Stephen Blackman III, MD [Primary Care Provider] - Test Results: Test results from this visit will be discussed in further detail at your follow- up appointment, if applicable. Proposed Discharge Date: 08/28/18
[2018-08-26 14:41] VITALS: BP 126/78; PULSE 100; RESP 18; TEMP 37.2; O2SAT 97
[2018-08-26] MEDS: Acetaminophen 500 MG Tablet 1000 MG PO (16:17)
[2018-08-26 20:00] VITALS: BP 114/79; PULSE 80; RESP 18; TEMP 37.3; O2SAT 97
[2018-08-26] MEDS: Ibuprofen 600 MG Tablet PO (21:40)
[2018-08-26] MEDS: Enoxaparin 40 MG/0.4 ML Syringe SC (21:40)
[2018-08-27 00:15] VITALS: BP 117/68; PULSE 88; RESP 18; TEMP 36.7; O2SAT 99
[2018-08-27 04:45] VITALS: BP 100/66; PULSE 78; RESP 18; TEMP 36.9; O2SAT 98
[2018-08-27] MEDS: Ibuprofen 600 MG Tablet PO ×2 (06:12→16:28)
--- NOTE | 2018-08-27 07:22 | PCM.PN.OB ---
Subjective: PPD#1 Doing well. nursing. Pain minimal Would like to stay. Baby with facial brusing 2/2 rapid descent, and Robert positive. Would rather stay than potentially have to come back for bilirubin issues. No concerns voiced otherwise. Feeling well. Objective: Lying down in bed, nursing/ attempting to latch fussy baby to L breast. - Physical Exam General: Alert, Oriented x3, Cooperative, No apparent distress HEENT: Atraumatic Neck: Supple Neurological: Cranial nerves II-XII grossly intact Psych/Mental Status: Normal Affect Vital Signs Temp Pulse Resp BP Pulse Ox 98.5 F 78 18 100/66 98 08/27/18 04:45 08/27/18 04:45 08/27/18 04:45 08/27/18 04:45 08/27/18 04:45 Oxygen Delivery Method Room Air Weight: 65.771 kg Body Mass Index (BMI) 24.9 Intake and Output for Last 24 Hours 08/25/18 08/26/18 08/27/18 23:59 23:59 23:59 Intake Total 1486 / 1486 Output Total 950 / 950 Balance 536 / 536 Laboratory Tests Past 24 Hrs 08/26/18 08/26/18 08:25 08:25 WBC 11.5 H RBC 4.67 Hgb 14.2 Hct 40.2 MCV 86.1 MCH 30.4 MCHC 35.3 RDW 13.4 RDW Differential 40.9 Plt Count 240 MPV 11.1 Blood Type O POSITIVE Antibody Screen NEGATIVE Medical Necessity - Tobacco Use Smoking Status: Never smoker Assessment/Plan All Active Problems (Last Reviewed 08/21/18 @ 09:02 by Deya Ceballos) Vaginal bleeding during (Acute) (Acute) Segmental and somatic dysfunction of pelvic region (Acute) Segmental and somatic dysfunction of sacral region (Acute) Segmental and somatic dysfunction of lumbar region (Acute) Abnormal glucose affecting (Acute) Supervision of high-risk (Acute) Antiphospholipid antibody syndrome complicating (Acute) screening encounter (Resolved) Antiphospholipid antibody positive (Resolved) Appendicitis (Resolved) Right knee sprain (Resolved) PPD#1 Stable pp. Continue care.
[2018-08-27 08:26] VITALS: BP 106/74; PULSE 76; RESP 16; TEMP 36.8
[2018-08-27 12:00] VITALS: BP 106/67; PULSE 78; RESP 18; TEMP 36.8
[2018-08-27] MEDS: Prenatal Vits Tablet 1 TABLET PO (12:20)
[2018-08-27] MEDS: Citalopram 40 MG TABLET PO (12:20)
[2018-08-27] MEDS: Acetaminophen 500 MG Tablet 1000 MG PO ×2 (12:22→21:27)
[2018-08-27 16:20] VITALS: BP 97/53; PULSE 84; RESP 16; TEMP 36.8
[2018-08-27 21:15] VITALS: BP 116/73; PULSE 93; RESP 16; TEMP 37.2; O2SAT 96
[2018-08-27] MEDS: Enoxaparin 40 MG/0.4 ML Syringe SC (21:29)
[2018-08-28] MEDS: Ibuprofen 600 MG Tablet PO ×2 (00:13→08:23)
[2018-08-28 01:26] VITALS: BP 111/68; PULSE 72; RESP 16; TEMP 36.7; O2SAT 97
[2018-08-28 07:30] VITALS: BP 100/68; PULSE 74; RESP 14; TEMP 36.7; O2SAT 100
--- NOTE | 2018-08-28 07:31 | PCM.PN.OB ---
Subjective: PPD#2 Doing well. Baby with bilirubin issues and needs repeat labs at about noon. States older son with N/V now. Not sure if she will be able to go home today, but hoping for afternoon. Baby nursing well. Minimal pain/bleeding. No other concerns voiced Objective: Lying in bed with baby latched, nursing. - Physical Exam General: Alert, Oriented x3, Cooperative, No apparent distress HEENT: Atraumatic Neck: Supple Psych/Mental Status: Normal Affect Vital Signs Temp Pulse Resp BP Pulse Ox 98.0 F 74 14 100/68 100 08/28/18 07:30 08/28/18 07:30 08/28/18 07:30 08/28/18 07:30 08/28/18 07:30 Oxygen Delivery Method Room Air Weight: 65.771 kg Body Mass Index (BMI) 24.9 Intake and Output for Last 24 Hours 08/26/18 08/27/18 08/28/18 23:59 23:59 23:59 Intake Total 1486 / 1486 Output Total 950 / 950 Balance 536 / 536 Medical Necessity - Tobacco Use Smoking Status: Never smoker Assessment/Plan All Active Problems (Last Reviewed 08/21/18 @ 09:02 by Deya Ceballos) Vaginal bleeding during (Acute) (Acute) Segmental and somatic dysfunction of pelvic region (Acute) Segmental and somatic dysfunction of sacral region (Acute) Segmental and somatic dysfunction of lumbar region (Acute) Abnormal glucose affecting (Acute) Supervision of high-risk (Acute) Antiphospholipid antibody syndrome complicating (Acute) screening encounter (Resolved) Antiphospholipid antibody positive (Resolved) Appendicitis (Resolved) Right knee sprain (Resolved) PPD#2 Stable pp. Dischg home today. Eligible for hotel if baby is not released. f/U with Dr Dave in 6 wk for pp check.
[2018-08-28] MEDS: Acetaminophen 500 MG Tablet 1000 MG PO (10:44)
[2018-08-28] MEDS: Citalopram 40 MG TABLET PO (10:45)
[2018-08-28 14:00] VITALS: BP 96/57; PULSE 94; RESP 18; TEMP 36.4; O2SAT 100
== END 2018-08-28 15:30 | disposition home or self-care (01) | DRG 807 ==
PROVIDERS: Admitting Provider Obstetrics & Gynecology; Family Provider Family Medicine; PCP Family Medicine; Referring Provider Obstetrics & Gynecology; Visit Provider Obstetrics & Gynecology
DX: O69.1XX0 Labor and delivery complicated by cord around neck, with compression, not applicable or unspecified (principal); Z37.0 Single live birth; O70.0 First degree perineal laceration during delivery; Z3A.38 38 weeks gestation of pregnancy; Z86.2 Personal history of diseases of the blood and blood-forming organs and certain disorders involving the immune mechanism
CPT/HCPCS: 59025; 59050; 85027; 86850; 86900; 99218; J7120; A4216; G0378; J2405

== ENCOUNTER → 2020-12-02 08:39 | Outpatient (CLI) | payer OTHER, SELFPAY ==
[2020-10-28 15:17] VITALS: BMI 24.0
[2020-12-02 10:06] LABS: Anion Gap 3 (5-15); BUN 10 mg/dL (7-18); BUN/Creat Ratio 11.9 RATIO (10-20); Calcium,Total 8.8 mg/dL (8.5-10.1); Chloride 108 mmol/L (98-107); Cholesterol 133 mg/dL (200); Creatinine, Serum 0.84 mg/dL (0.55-1.02); EST Glomerular Filtration Rate 83 mL/min (>60); Est Glom Filt Rate - Afr Amer 100 mL/min (>60); Glucose 88 mg/dL (74-106); High Density Lipoprotein 59 mg/dL; Potassium 4.1 mmol/L (3.5-5.1); Sodium Level 140 mmol/L (136-145); Triglycerides 54 mg/dL; Very Low Density Lipoprotein 11 mg/dL (5-40)
[2020-12-02 12:52] LABS: Vitamin D,25 Hydroxy 24.3 ng/mL
== END ==
PROVIDERS: PCP Family Medicine; Referring Provider Family Medicine; Visit Provider Family Medicine
DX: Z00.00 Encounter for general adult medical examination without abnormal findings (principal)
CPT/HCPCS: 36415; 80048; 80061; 82306

== ENCOUNTER 2021-06-07 08:31 | Outpatient (RCR) | payer OTHER, SELFPAY | END 2021-06-30 23:59 | LOC: EMPH 08:31 | PROVIDERS: PCP Family Medicine; Referring Provider Family Medicine Geriatric Medicine; Visit Provider Family Medicine Geriatric Medicine | DX: Z03.818 Encounter for observation for suspected exposure to other biological agents ruled out (principal) | CPT/HCPCS: 87426 ==

== ENCOUNTER 2021-08-01 08:30 | Outpatient (RCR) | payer OTHER, SELFPAY ==
[2020-10-28 15:17] VITALS: BMI 24.0
--- NOTE | 2021-01-31 12:30 | MASS.EVAL_ITS ---
Massage Therapy Evaluation: Initial Evaluation Date: 01/28/2021 SUBJECTIVE: Rissa is a 35 year old female who was referred to the [facility] facility for a massotherapy evaluation by Dr. Beckford with the diagnosis of migraines. She presents today with the symptoms of pain, stiffness and tension in the neck, head, mid back, and shoulder pain. 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 OBJECTIVE: Upon observation Rissa has some posture issues with her head and shoulders forward from the neutral position in sitting and standing. After examination and palpation, I found Rissa to have high muscle tension with tenderness and myofascial restrictions in her sub occipitals, levator scapulae, trapezius, rhomboids, scalenes, and thoracic paraspinals. Her QL?s and lumbar paraspinals all were very tight with fascial restrictions, tender points and trigger points. The first treatment consisted of a one hour massage to her upper body with myofascial release, muscle stripping, trigger point compression techniques, and cervical manual traction. ASSESSMENT: I feel that Rissa is a good candidate for massotherapy at this time. She had a favorable response to the first treatment with reduction in her muscle aches, pain and tension. She also had improvement in her cervical flexibility and low back flexibility. PLAN: The plan of care was reviewed with the patient. The patient is to be seen on an as needed basis for a total of ten sessions with the recommendation of once every month for a one hour treatment.
--- NOTE | 2021-09-19 12:52 | MASS.DISCH ---
Massage Therapy Discharge Summary: discharge date 09/19/21 Rissa was seen on January 28, 2021, with the diagnosis of migraines. She was treated with five sessions of massage, and the patient reported that massages helped. At this time I am discharging her from our care at [facility].
== END 2021-08-01 19:00 | disposition home or self-care (01) ==
LOC: MASS 08:30
PROVIDERS: PCP Family Medicine; Referring Provider Family Medicine; Visit Provider Family Medicine
DX: G43.909 Migraine, unspecified, not intractable, without status migrainosus (principal)
CPT/HCPCS: 97124

== ENCOUNTER → 2023-08-17 | Outpatient (CLI) | payer OTHER, SELFPAY ==
[2023-08-17 09:11] LABS: Anion Gap 3 (5-15); BUN 12 mg/dL (7-18); Calcium,Total 8.7 mg/dL (8.5-10.1); Chloride 106 mmol/L (98-107); Cholesterol 149 mg/dL (200); EST Glomerular Filtration Rate 67 mL/min (>60); Est Glom Filt Rate - Afr Amer 81 mL/min (>60); Glucose 96 mg/dL (74-106); High Density Lipoprotein 67 mg/dL; Potassium 3.9 mmol/L (3.5-5.1); Sodium Level 137 mmol/L (136-145); Triglycerides 111 mg/dL; Very Low Density Lipoprotein 22 mg/dL (5-40)
== END | disposition home or self-care (01) ==
LOC: LAB 07:53
PROVIDERS: PCP Family Medicine; Referring Provider Family Medicine; Visit Provider Family Medicine
DX: Z00.00 Encounter for general adult medical examination without abnormal findings (principal)
CPT/HCPCS: 36415; 80048; 80061

== ENCOUNTER → 2023-11-20 | Outpatient (CLI) | payer OTHER, SELFPAY ==
--- OUTSIDE RECORDS SUMMARY | 2023-11-20 11:54 | XMS RPT_ITS | CCD ---
Author Name Unknown Address [address] [place] [address] Organization [facility] Care Team Providers Care Hat Brusher Machine Name Role Phone Unavailable Primary Care Provider Unavailadebayo e LIBIA MAGUIRE Referring Unavailable LIBIA MAGUIRE Attending Unavailable ANGELICA SCHROEDER Referring Unavailable ANGELICA SCHROEDER Attending Unavailable MANJU MONTANO Referring Unavailable Allergies Allergy Classification Reported Allergen(s) Allergy Type Date of Onset Reaction(s) Facility (2 sources) Atropine / Hyoscyamine / PHENobarbital / Scopolamine; Translations: [PHENOBARB-HYOSCY -ATROPINE-SCOP] Drug Allergy 3 [facility] (1 source) OTHER; Translations: [OTHER] Propensity to adverse reactions (disorder) 8 [facility] Repository Medications Completed/Discontinued Medications Medication Drug Class(es) Dates Sig (Normalized) Sig (Original) acetaminophen 325 mg oral tablet (1 source) take 2 tablets by mouth every six hours as needed acetaminophen (TYLENOL) 325 mg tablet Take 650 mg by mouth every 6 hours as needed. 0 Active Problems Active Problems Problem Classification Problem Date Documented Da te Episodic/Chronic Abdominal pain (2 sources) Finding of sensation of abdomen; Translations: [Unspecified abdominal pain] Onset: 4 09-10-2023 Episodic Coagulation and hemorrhagic disorders (1 source) Antiphospholipid syndrome; Translations: [Antiphospholipid syndrome] Onset: 3 09-10-2023 Chronic Headache; including migraine (1 source) Migraine with aura; Translations: [Migraine with aura, not intractable, without status migrainosus] Onset: 4 04-06-2014 Chronic Immunizations and screening for infectious disease (3 sources) Patient encounter status; Translations: [Encounter for screening for human papillomavirus (HPV)] 09-10-2023 Episodic Other female genital disorders (1 source) Vaginal bleeding; Translations: [Postcoital and contact bleeding] 09-10-2023 Chronic Other female genital disorders (1 source) Vaginal irritation; Translations: [Other specified noninflammatory disorders of vagina] 09-10-2023 Episodic Other female genital disorders (1 source) Pain on movement of cervix; Translations: [Unspecified condition associated with female genital organs and menstrual cycle] 09-10-2023 Episodic Other gastrointestinal disorders (1 source) Complete fecal incontinence; Translations: [Full incontinence of feces] 09-10-2023 Episodic Other gastrointestinal disorders (1 source) Pain associated with defecation; Translations: [Other specified symptoms and signs involving the digestive system and abdomen] 09-10-2023 Episodic Other gastrointestinal disorders (1 source) Diarrhea, unspecified; Translations: [Intermittent diarrhea] Onset: 4 Episodic Other gastrointestinal disorders (1 source) Full incontinence of feces; Translations: [Full incontinence of feces] Onset: 4 Episodic Other gastrointestinal disorders (1 source) Other specified symptoms and signs involving the digestive system and abdomen; Translations: [Pain with bowel movements] Onset: 4 Episodic Other screening for suspected conditions (not mental disorders or infectious disease) (1 source) Cancer cervix screening status; Translations: [Encounter for screening for malignant neoplasm of cervix] 09-10-2023 Episodic Past or Other Problems Problem Classification Problem Date Documented Date Episodic/Chronic Disorders of teeth and jaw (1 source) Temporomandibular orjgy-xkyo-jftfsyrjdqf syndrome; Translations: [Arthralgia of temporomandibular joint, unspecified side] Onset: 05-04-2011 05-04-2011 Episodic Results Test Name Value Interpretation Reference Range Facil ity Vital Signs Date Time Vital Sign Value Performing Clinician Vadim martin 09-10-2023 08:17-0500 Body height 162.6 cm Angelica Schroeder APRN.CNM Work Phone: [facility] 09-10-2023 08:17-0500 Body weight 61.69 kg Angelica Schroeder APRN.CNM Work Phone: [facility] 09-10-2023 08:17-0500 Diastolic blood pressure 68 mm[Hg] Angelica Schroeder APRN.CNM Work Phone: [facility] 09-10-2023 08:17-0500 Systolic blood pressure 112 mm[Hg] Angelica Schroeder APRN.CNM Work Phone: [facility] Encounters Encounter Date Encounter Type Care Provider Facility Start: 10-30-2023 End: 10-31-2023 ambulatory [facility] Facility:[facility] Start: 10-26-2023 End: 10-26-2023 ambulatory LIBIA MAGUIRE Facility:[facility] Start: 09-10-2023 End: 09-10-2023 ambulatory ANGELICA ALEXANDRE Facility:[facility] Start: 09-10-2023 End: 09-10-2023 Patient encounter procedure Angelica Schroeder APRN.CNM Work Phone: OB/Gynecology Plan of Treatment Date Care Activity Detail Author Start: 06-20-2028 Urine microalbumin profile DTaP,Tdap,Td Vaccine (9 - Td or Tdap) [facility] Start: 06-01-2023 Covid-19 Vaccine ( season) Covid-19 Vaccine () [facility] Start: 10-01-2022 Depression Assessment Depression Assessment [facility] Start: 08-23-2020 Pap Testing Pap Testing [facility] Start: 2016 HPV Testing HPV Testing [facility] Start: 2004 Hepatitis C Screening Hepatitis C Screening [facility] BACTERIAL VAGINOSIS NAAT BACTERIAL VAGINOSIS NAAT Lab Routine Encounter for gynecological examination (general) (routine) with abnormal findings 09/10/2023 9:59 AM EST [facility] Work Phone: MISHA/TRICHOMONAS NAAT MISHA/TRICHOMONAS NAAT Lab Routine Encounter for gynecological examination (general) (routine) with abnormal findings Screening examination for STD (sexually transmitted disease) 09/10/2023 9:59 AM Rewarding Return [facility] Work Phone: Chlamydia trachomatis+Neisseria gonorrhoeae DNA [Presence] in Unspecified specimen by RAINA with probe detection GONORRHEA/CHLAMYDIA NAAT Lab Routine Screening examination for STD (sexually transmitted disease) 09/10/2023 9:59 AM EST [facility] Work Phone: PAP TEST PAP TEST Lab Robert humphreys Encounter for gynecological examination (general) (routine) with abnormal findings Screening for cervical cancer Encounter for screening for human papillomavirus (HPV) 09/10/2023 9:59 AM [facility] Work Phone[facility] Immunizations Immunization Date Immunization Notes Care Provider Cassandra zhou 08-19-2008 hepatitis B vaccine, adult dosage Angelica Alexandre HASKINSN.CNM Work Phone: [facility] Work Phone: 01-10-2008 hepatitis B vaccine, adult dosage Angelica Schroeder LADLE BUILDER.CNM Work Phone: [facility] Work Phone: 12-06-2007 hepatitis B vaccine, adult dosage Angelica Schroeder LADLE BUILDER.CNM Work Phone: [facility] Work Phone: 12-06-2007 tetanus toxoid, redu maximo diphtheria toxoid, and acellular pertussis vaccine, adsorbed Angelicachalrey Schroeder APRN.CNM Work Phone: [facility] 03-17-1999 measles, mumps and rubella virus vaccine Angelica Schroeder APRN.CNM Work Phone: [facility] Work Phone: 11-06-1991 diphtheria, tetanus toxoids and acellular pertussis vaccine Angelica Schroeder APRN.CNM Work Phone: [facility] Work Phone: 11-06-1991 poliovirus vaccine, inactivated Angelica Schroeder APRN.CNM Work Phone: [facility] Work Phone: 10-05-1988 haemophilus influenz ae type b vaccine, conjugate unspecified formulation Angelica Schroeder APRN.CNM Work Phone: [facility] Work Phone: 05-03-1988 diphtheria, tetanus toxoids and acellular pertussis vaccine Angelica Alexandre HASKINSN.CNM Work Phone: [facility] Work Phone: 01-06-1988 measles, mumps and rubella virus vaccine Angelica Schroeder LADLE BUILDER.CNM Work Phone: [facility] Work Phone: 04-07-1987 diphtheria, tetanus toxoids and acellular pertussis vaccine Angelica Schroeder LADLE BUILDER.CNM Work Phone: [facility] Work Phone: 04-07-1987 poliovirus vaccine, inactivated Angelica Schroeder LADLE BUILDER.CNM Work Phone: [facility] Work Phone: 02-05-1987 diphtheria, tetanus toxoids and acellular pertussis vaccine Angelica Schroeder LADLE BUILDER.CNM Work Phone: [facility] Work Phone: 02-05-1987 poliovirus vaccine, inactivated Angelica Schroeder LADLE BUILDER.CNM Work Phone: [facility] Work Phone: 1986 diphtheria, tetanus toxoids and acellular pertussis vaccine Angelica Schroeder LADLE BUILDER.CNM Work Phone: [facility] Work Phone: 1986 poliovirus vaccine, inactivated Angelica Schroeder LADLE BUILDER.CNM Work Phone: [facility] Work Phone: Payers Date Payer Category Payer Unknown MMO MMO [employer] PPO [id number] 2022-Present [phone] [address] [place] [address] PPO [id number] 2022 Unknown [id number] Social History Date Type Detail Facility Start: 05-04-2011 Tobacco smoking stat [facility] Never smoked tobacco [facility] Start: 05-04-2011 Tobacco use and exposure Smokeless tobacco non-user [facility] Start: 09-10-2023 Alcohol intake Current drinke r of alcohol (finding) [facility] Start: 09-10-2023 History of Social function [facility] Start: 09-10-2023 Tobacco use panel Levirene najera [facility] Start: 09-10-2023 [facility] Start: 1985 Sex Assigned At Not on file [facility] Progress note 10-26-2023 Note Date & Type Note Facility 10-26-2023 Note HNO ID: [id number] Author: LIBIA MAGUIRE PA-C Service: ? Author Type: Physician Quality Control Lead Type: Progress Notes Filed: 10/26/2023 08:58 Note Text: CHIEF COMPLAINT: Patient presents with: Diarrhea: Abdominal pain- intermittent for the past 6 months This consult was requested by Angelica Schroeder APRN.CNM for an opinion regarding diarrhea, abdominal pain. My final recommendations will be communicated to the requesting health care provider by way of the shared medical record for internal providers or letter via the [employer] for external providers. HPI: Rissa Serna is a 38 year old female who presents for Diarrhea (Abdominal pain- intermittent for the past 6 months ). PMHx of anti-phospholipid syndrome, migraine, TMJ Patient tells me that she has been dealing with intermittent diarrhea that is incredibly urgent. She has been incontinent with this. This has been going on for the last 4-5 months, about once a month. Lasting about one day. No real triggers to this. Getting abdominal cramping even without having the diarrhea. Seeing some bloat and gas. No rectal bleeding or black stools. Getting some nausea with flares. No vomiting, fevers. Gets a big appetite decrease with flares. Weight is stable. Will take Imodium during flares. No smoking. Social alcohol use. No pertinent GI family hx. Record Review: [facility] / Outside records reviewed. PAST MEDICAL HISTORY Diagnosis Date Abnormal Pap smear of cervix Adjustment disorder with depressed mood Anti-phospholipid syndrome (HCC) Migraine headache with aura 04/06/2014 Miscarriage 07/01/2014 Myopia, bilateral 04/06/2014 Other forms of migraine TMJ syndrome 05/04/2011 PAST SURGICAL HISTORY Procedure Laterality Date APPENDECTOMY N/A 08/11/2017 DILATION AND CURETTAGE 08/13/2017 DILATION AND CURETTAGE DXAND/THER NONOBSTETRIC 07/31/2014 Dilation AND curettage HERNIA REPAIR HX 08/11/2017 ULTRASOUND OBSTETRICS 01/30/2015 [facility] ULTRASOUND PELVIC 10/06/2014 [facility] Allergies: ALLERGIES Allergen Reactions [Phenobarb* Hives Medications: Norethindrone, Contraceptive, 0.35 mg tablet Take 1 tablet by mouth once daily. citalopram (CELEXA) 40 mg tablet Take 40 mg by mouth once daily. Cetirizine 10 mg cap Take 10 mg by mouth once daily. BIOTIN ORAL Take by mouth. COLLAGEN MISC Take by mouth once daily. Capsule acetaminophen (TYLENOL) 325 mg tablet Take 650 mg by mouth every 6 hours as needed. Qbinzmej-Wx-Kly-Fe-FA ( VITAMIN) tab Take 1 tablet by mouth once daily. 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 Gastrointestinal: Positive for abdominal pain and diarrhea. Change in Bowel Habits All other systems reviewed and are negative. Are you taking any blood thinners? No Physical Examination: BP 114/76 Pulse 72 Ht 5' 4 (1.63m) Wt 133 lb 11.2 oz (60.6kg) LMP 08/25/2023 BMI 22.94 kg/(m2). Physical Exam Constitutional: Appearance: Normal appearance. She is normal weight. HENT: Head: Normocephalic and atraumatic. Eyes: General: No scleral icterus. Extraocular Movements: Extraocular movements intact. Conjunctiva/sclera: Conjunctivae normal. Pupils: Pupils are equal, round, and reactive to light. Cardiovascular: Rate and Rhythm: Normal rate and regular rhythm. Pulses: Normal pulses. Heart sounds: Normal heart sounds. Pulmonary: Effort: Pulmonary effort is normal. Breath sounds: Normal breath sounds. Abdominal: General: Abdomen is flat. Bowel sounds are normal. Palpations: Abdomen is soft. Tenderness: There is no abdominal tenderness. Musculoskeletal: General: Normal range of motion. Cervical back: Normal range of motion and neck supple. Skin: General: Skin is warm and dry. Coloration: Skin is not jaundiced. Neurological: General: No focal deficit present. Mental Status: She is alert and oriented to person, place, and time. Psychiatric: Mood and Affect: Mood normal. Behavior: Behavior normal. Thought Content: Thought content normal. Judgment: Judgment normal. Assessment/Plan (R19.7) Intermittent diarrhea (primary encounter diagnosis) (R10.9) Abdominal cramping (R15.9) Full incontinence of feces 1. Intermittent diarrhea -- Patient with interm (more content not included)... [facility] Progress note 09-10-2023 Note Date & Type Note Facility 09-10-2023 Note HNO ID: [id number] Author: Angelica Schroeder APRN.CNM Service: ? Author Type: Kick Press Setter Type: Progress Notes Filed: 09/10/2023 9:12 AM Note Text: Rissa is a 37 year old who presents for an annual gynecologic exam with complaints, postcoital bleeding . Interested in control. Yeast infections before the last 3-4 menses. Treating with clotrimazole. Menses: cycles every 24 days and 4 days of flow. Contraception: condoms HPV vaccine: No Last Pap: 08/31/2015 normal HPV: negative History of abnormal pap: Yes, long time ago, not sure exactly when. Last mammogram: never Sexually active: Yes Time with current partner: 3 months, sexually active for 2 months Pain with intercourse: No Postcoital bleeding: Yes Exercise: 2-3 times a week for 60 minutes. Type: Gym weights/cardio Diet: Regular/no restrictions. 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/04/2011 PAST SURGICAL HISTORY Procedure Laterality Date APPENDECTOMY N/A 08/11/2017 DILATION AND CURETTAGE 08/13/2017 DILATION AND CURETTAGE DXAND/THER NONOBSTETRIC 07/31/2014 Dilation AND curettage ULTRASOUND OBSTETRICS 01/30/2015 [facility] ULTRASOUND PELVIC 10/06/2014 [facility] FAMILY HISTORY Problem Relation Age of Onset other (epilepsy [Other]) Mother Diabetes Father None Sister half x 2 None Brother half x 1 Cancer Maternal Grandmother Uterine Heart Maternal Grandfather Heart Paternal Grandfather CHF SOCIAL HISTORY Social History Tobacco Use Smoking status: Never Smokeless tobacco: Never Substance Use Topics Alcohol use: Yes Comment: occasionally Drug use: No REVIEW OF SYSTEMS Abdomen: No abdominal pain, nausea, vomiting, diarrhea, or constipation. No bloating, early satiety, indigestion, or increased flatulence. Stool incontinence in last year. Happened prior to this but has been more regular. After children were born this started, only 2nd degree. Stool is liquid, will occur seven times a day, and occurs after painful cramping. Not food related that she can notice. Bladder: No dysuria, gross hematuria, urinary frequency, urinary urgency, or incontinence. Breast: No breast lumps, nipple d/c, overlying skin changes, redness or skin retraction. Allergies and current medication updated:Yes EXAM: BP 112/68 Ht 5' 4 (1.63m) Wt 136 lb (61.7kg) LMP 08/25/2023 BMI 23.33 kg/(m2). GENERAL: pleasant, female in no apparent distress HEENT: Normocephalic, atraumatic, mucus membranes moist, and no lesions NECK: Supple, full range of motion, no adenopathy, and thyroid normal DERMATOLOGY: Normal, without lesions, non-icteric, and non-hirsute BREAST: soft, non-tender, symmetric, no dominant mass, normal nipple-areolar complex, no lymphadenopathy, and no nipple discharge CHEST: Clear to auscultation, Normal inspiratory effort, Regular rate and rhythm, and No murmurs, clicks, rubs or gallops ABDOMEN: soft, non-tender, and no masses PELVIC: external genitalia normal, normal Bartholin's glands, urethra, [place]'s glands, no vulvar lesions, no cervical lesions, good vaginal support, physiologic discharge present, normal appearing perineal body and perianal region BIMANUAL: uterus normal size, shape and consistency, no adnexal masses, and non-tender RECTOVAGINAL: deferred. NEURO: alert and oriented x3,exam grossly non-focal EXTREMITIES: normal ASSESSMENT/PLAN: 1. Encounter for gynecological examination (general) (routine) with abnormal findings - ICD9: V72.31, ICD10: Z01.411 (primary diagnosis) - Completed pelvic and breast exam - Encouraged monthly BSE - Follow up for annual exam in one year. - PAP TEST - MISHA/TRICHOMONAS NAAT - BACTERIAL VAGINOSIS NAAT 2. Screening for cervical cancer - ICD9: V76.2, ICD10: Z12.4 - Completed pelvic and breast exam - Encouraged monthly BSE - Follow up for annual exam in one year. - PAP TEST 3. Encounter for screening for human papillomavirus (HPV) - ICD9: V73.81, ICD10: Z11.51 - PAP TEST 4. Full incontinence of feces - ICD9: 787.60, ICD10: R15.9 - CONSULT TO GASTROENTEROLOGY - Discussed due to abdominal cramping and pain with bowel movement will start with GI. If no source found for incontinence, will recommend pelvic floor physical therapy. 5. Vaginal irritation - ICD9: 623.9, ICD10: N89.8 6. Screening examination for STD (sexually transmitted disease) - ICD9: V74.5, (more content not included)... [facility] Instructions 09-10-2023 Patient Instructions Note Date & Type Note Facility 09-10-2023 Instructions Angelica Schroeder APRN.CN - 09/10/2023 8:51 AM EST Oral Contraceptives: The Pill Beginning the Pill Pills come in either a 21 day pack or a 28 day pack. With the 21 day pack you will take one pill for 21 days then no pill for 7 days, during which time you will have what is known as withdrawal bleeding. The 28 day pack allows you to take a pill every day of the cycle with no interruptions. The first 21 pills are the pills with the active ingredients and the last 7 are the nonmedical pills (placebo) or they may contain iron. There will be bleeding during the week you are taking the nonmedical pills. The advantage to the 28 day pack is that you don t have to keep track of when you stopped the pill. Unless otherwise instructed, you should start your pills the Sunday following your first day of bleeding with your next period (if your period starts on a Sunday, you should start pills the same day) Read your information packet that comes with the pills. Pill Benefits The pill is the most popular method of reversible control being used today. Millions of women rely on oral contraceptives as their control method. It is important to have an examination by your physician to determine if the pill is safe for you. There are several advantages associated with the pill: it is 97-98% effective; may improve acne; periods are more regular and less painful; there is less iron deficiency anemia in pill users. intermodal truck driver use is associated with a decreased incidence of ovarian and uterine cancer. There is also no evidence that the pill increases the incidence of any cancer. How Oral Contraceptives Work Oral contraceptives come in two varieties. One is the combination pill which contains both estrogen and progesterone. Combination pills are considered 98-99% effective in preventing . This pill comes in either monophasic, which delivers the same amount of estrogen and progesterone throughout the cycle; and triphasic, which try tries to mimic the normal hormone cycle by changing the levels of the hormones in the pills during the month. There is no real advantage to taking the one over the other. The other type of pill only contains progesterone. It is best used for women who can t take estrogen. This type of pill is slightly less effective than the combination pill in preventing . Oral contraceptives prevent ovulation (release of an egg from the ovary) by suppressing the pituitary gland s action. The pill does NOT prevent sexually transmitted disease. Obtaining a Prescription It is important to see your doctor before starting oral contraceptives so that you can have a full medical history taken and a physical examination given. Certain medical conditions may make the pill inappropriate for you, therefore it is very important to be honest and as complete as possible with the information you share with your doctor. The types of predisposing factors which would make the pill a poor choice of control would include: History of blood clots Stroke Serious liver disease or impaired liver function Unexplained vaginal bleeding or Cancer of the reproductive system Active gall bladder disease Hypertension Possible Side Effects It can take up to three months for your body to become adjusted to the pill. The more common side effects experienced at this time are: breakthrough spotting or bleeding, which is bleeding at any other time other than when you should be having a period; nausea or vomiting; breast tenderness; and mild fluid retention. There is no intermodal owner operator truck driver weight gain with the use of the pill. Breakthrough bleeding is the most common complaint of new pill users. There is no way to predict who will have it and there is no way of preventing it. Breakthrough bleeding usually subsides on its own with no further treatment after the first three months of taking the pill. If these symptoms continue to occur after the first three months you should check with your physician to see if there is any physical cause and possibly change to another control pill. Problems: Missed 1 pill: Take 2 pills the next day. Missed 2 pills: Take 2 pills the next day and 2 pills the following day. Also use another form of control (condoms) along with the pill for the rest of the month. Missed 3 or more pills: You have two choices. You can take two pills each day until you are on schedule, plus use an additional form of control along with the pill for the rest of the month. Or you can stop the pill and start a completely new pack of pills the next Sunday. You must use another form of control with the pill for at least the first two weeks of the new pack. You re ill and you have been vomiting or have diarrhea: You must use another form of control with the pill since the pill may not be fully absorbed during your illness. Continue to use the added control until the end of the cycle. Desire to become : Stop using the pill for one month before trying to become . Taking other medications: The control pill is less effective when you take the antibiotic Rifampin, epilepsy (seizure) drugs such as phenytoin, carbamazepine, phenobarbital, topiramate and some medications for HIV. Let your doctor know if you start taking any of these medications while on the pill. Symptoms to Notify Your Doctor with Immediately: Pain in your chest or legs Continuous blurred vision Severe headaches Slurred speech Tingling or weakness on one side of your body Shortness of breath Swelling of one leg Refills of Control Pills You need to see a doctor every year for a refill of your prescription. This is necessary in order that your health can be monitored closely while you are taking control pills. If your prescription should before your next scheduled appointment you can usually get a one month extension from your doctors office if you call during regular business hours about one week before you need to start the new package of pills. This allows the physician to refer to your chart for necessary health information. documented in this encounter [facility] History of Present illness Narrative 09-10-2023 Angelica Schroeder APRN.CNM - 09/10/2023 8:05 AM EST Note Date & Type Note Facility 09-10-2023 History of Presen t illness Narrative Rissa is a 37 year old who presents for an annual gynecologic exam with complaints, postcoital bleeding . Interested in control. Yeast infections before the last 3-4 menses. Treating with clotrimazole. Menses: cycles every 24 days and 4 days of flow. Contraception: condoms HPV vaccine: No Last Pap: 08/31/2015 normal HPV: negative History of abnormal pap: Yes, long time ago, not sure exactly when. Last mammogram: never Sexually active: Yes Time with current partner: 3 months, sexually active for 2 months Pain with intercourse: No Postcoital bleeding: Yes Exercise: 2-3 times a week for 60 minutes. Type: Gym weights/cardio Diet: Regular/no restrictions. 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/04/2011 PAST SURGICAL HISTORY Procedure Laterality Date APPENDECTOMY N/A 08/11/2017 DILATION & CURETTAGE 08/13/2017 DILATION & CURETTAGE DX&/THER NONOBSTETRIC 07/31/2014 Dilation & curettage ULTRASOUND OBSTETRICS 01/30/2015 [facility] ULTRASOUND PELVIC 10/06/2014 [facility] FAMILY HISTORY Problem Relation Age of Onset other (epilepsy [Other]) Mother Diabetes Father None Sister half x 2 None Brother half x 1 Cancer Maternal Grandmother Uterine Heart Maternal Grandfather Heart Paternal Grandfather CHF SOCIAL HISTORY Social History Tobacco Use Smoking status: Never Smokeless tobacco: Never Substance Use Topics Alcohol use: Yes Comment: occasionally Drug use: No REVIEW OF SYSTEMS Abdomen: No abdominal pain, nausea, vomiting, diarrhea, or constipation. No bloating, early satiety, indigestion, or increased flatulence. Stool incontinence in last year. Happened prior to this but has been more regular. After children were born this started, only 2nd degree. Stool is liquid, will occur seven times a day, and occurs after painful cramping. Not food related that she can notice. Bladder: No dysuria, gross hematuria, urinary frequency, urinary urgency, or incontinence. Breast: No breast lumps, nipple d/c, overlying skin changes, redness or skin retraction. Allergies and current medication updated:Yes EXAM: BP 112/68 Ht 5' 4 (1.63m) Wt 136 lb (61.7kg) LMP 08/25/2023 BMI 23.33 kg/(m^2). GENERAL: pleasant, female in no apparent distress HEENT: Normocephalic, atraumatic, mucus membranes moist, and no lesions NECK: Supple, full range of motion, no adenopathy, and thyroid normal DERMATOLOGY: Normal, without lesions, non-icteric, and non-hirsute BREAST: soft, non-tender, symmetric, no dominant mass, normal nipple-areolar complex, no lymphadenopathy, and no nipple discharge CHEST: Clear to auscultation, Normal inspiratory effort, Regular rate and rhythm, and No murmurs, clicks, rubs or gallops ABDOMEN: soft, non-tender, and no masses PELVIC: external genitalia normal, normal Bartholin's glands, urethra, [place]'s glands, no vulvar lesions, no cervical lesions, good vaginal support, physiologic discharge present, normal appearing perineal body and perianal region BIMANUAL: uterus normal size, shape and consistency, no adnexal masses, and non-tender RECTOVAGINAL: deferred. NEURO: alert and oriented x3,exam grossly non-focal EXTREMITIES: normal ASSESSMENT/PLAN: 1. Encounter for gynecological examination (general) (routine) with abnormal findings - ICD9: V72.31, ICD10: Z01.411 (primary diagnosis) - Completed pelvic and breast exam - Encouraged monthly BSE - Follow up for annual exam in one year. - PAP TEST - MISHA/TRICHOMONAS NAAT - BACTERIAL VAGINOSIS NAAT 2. Screening for cervical cancer - ICD9: V76.2, ICD10: Z12.4 - Completed pelvic and breast exam - Encouraged monthly BSE - Follow up for annual exam in one year. - PAP TEST 3. Encounter for screening for human papillomavirus (HPV) - ICD9: V73.81, ICD10: Z11.51 - PAP TEST 4. Full incontinence of feces - ICD9: 787.60, ICD10: R15.9 - CONSULT TO GASTROENTEROLOGY - Discussed due to abdominal cramping and pain with bowel movement will start with GI. If no source found for incontinence, will recommend pelvic floor physical therapy. 5. Vaginal irritation - ICD9: 623.9, ICD10: N89.8 6. Screening examination for STD (sexually transmitted disease) - ICD9: V74.5, ICD10: Z11.3 - MISHA/TRICHOMONAS NAAT - GONORRHEA/CHLAMYDIA NAAT 7. Pain with bowel movements - ICD9: 564.00, ICD10: R19.8 - CONSULT TO GASTROENTEROLOGY 8. Abdominal cramping - ICD9: 789.00, ICD10: R10.9 - Referral to Gastroenterology - CONSULT TO GASTROENTEROLOGY 9. Postcoital and contact bleeding - ICD9: 626.7, ICD10: N93.0 -Discussed STD and vaginitis testing. If testing positive will treat infection and if no improvement after 4 weeks to notify me. If negative or no improvement after infection treatment, recommend course of Doxycycline. Will notify patient of treatment after results. 10. Encounter for initial prescription of contraceptive pills - ICD9: V25.01, ICD10: Z30.011 - discussed with patient on how to take OCP's. - counseled on benefits, risks and possible severe side effects of OCP's. - discussed need to use Condoms to help to prevent STD's including HIV etc. 11. Cervical motion tenderness - ICD9: 625.8, ICD10: N94.9 1) Health maintenance: Pap done with HPV. Nutrition, exercise and routine health maintenance exams reviewed. Calcium/Vitamin D supplementation information provided. Lipids/glucose: followed by PCP Vitamin D: followed by PCP 2) Contraception: Progestin - only contraceptives. Contraceptive options reviewed and information provided. Reviewed risks, benefits, alternatives and how to take. 3) STD screening: Accepted STD check for Gonorrhea and Chlamydia. 4) Follow up one year or sooner as needed Angelica Schroeder APRN.CNM documented in this encounter [facility] History of Past illness Narrative 06-02-2015 Note Date & Type Note Facility documented as of this encounter (statuses as of 09/10/2023) [facility] Evaluation note Note Date & Type Note Facility documented in this encounter [facility] Reason for Referral Specialty Diagnoses / Procedures Referred By Natividad snyder Referred To Contact Gastroenterology Diagnoses Full incontinence of feces Pain with bowel movements Abdominal cramping Procedures CONSULT TO GASTROENTEROLOGY OFFICE/OUTPATIENT [facility] 60-74 MINUTES Angelica Schroeder APRN.CNM [address] [place] [address] Referral ID Status Reason Start Date Expiration Date Visits Requested Visits Authorized [id number] Authorized PCP Requested Referral 3 09/09/2024 1 1 Summary Purpose Family History No Family History Records Found Advance Directives No Advanced Directives Records Found Additional Source Comments Source Comments (unrecognize d section and content) In the event this informatio n is protected by the Federal Confidentiality of Alcohol and Drug Abuse Patient Records regulations: The Federal rules restrict any use of the information to criminally investigate or prosecute any alcohol or drug abuse patient.[facility] Reason for Visit (unrecogniz ed section and content) INFORMATION SOURCE (unrecogn ized section and content) FOR RECORDS PERTAINING TO PATIENTS WHO ARE OR HAVE BEEN ENROLLED IN A CHEMICAL DEPENDENCY/SUBSTANCEABUSE PROGRAM, SOME INFORMATION MAY BE OMITTED. This clinical summary was aggregated from multiple sources. Caution should be exercised in using it in the provision of clinical care. This summary normalizes information from multiple sources, and as a consequence, information in this document may materially change the coding, format and clinical context of patient data. In addition, data may be omitted in some cases. CLINICAL DECISIONS SHOULD BE BASED ON THE PRIMARY CLINICAL RECORDS. [facility] [employer] [facility]. provides no warranty or guarantee of the accuracy or completeness of information in this document.
[2023-11-20 12:20] LABS: Free T3 2.9 pg/mL (2.18-3.98); T4 Free Direct 0.97 ng/dL (0.76-1.46); Thyroid Stim Hormone (TSH) 2.89 uIU/mL (0.358-3.74)
== END | disposition home or self-care (01) ==
LOC: LAB 11:22
PROVIDERS: PCP Family Medicine; Referring Provider Family Medicine; Visit Provider Family Medicine
DX: R79.89 Other specified abnormal findings of blood chemistry (principal)
CPT/HCPCS: 36415; 84439; 84443; 84481